=== PATIENT | female | born 1990 | race Asian ===

== ENCOUNTER 2021-04-12 00:16 | Emergency (ER) | payer OTHER ==
[~2021-04-12] VITALS: Ht 160 cm; Wt 59.0 kg
[2021-04-12 00:16] VITALS: BP 129/60
== END 2021-04-12 01:37 | disposition home or self-care (01) ==
LOC: ER 00:23
DX: Z20.822 Contact with and (suspected) exposure to COVID-19 (principal)
CPT/HCPCS: 99283; C9803; U0003

== ENCOUNTER 2021-04-26 01:57 | Emergency (ER) | payer OTHER ==
[~2021-04-26] VITALS: Ht 157.5 cm; Wt 59.0 kg
[2021-04-26 02:01] VITALS: BP 124/65
== END 2021-04-26 02:47 | disposition home or self-care (01) ==
LOC: ER 01:59
DX: Z20.822 Contact with and (suspected) exposure to COVID-19 (principal)
CPT/HCPCS: 99283; C9803; U0003

== ENCOUNTER 2021-04-30 02:06 | Emergency (ER) | payer OTHER ==
[~2021-04-30] VITALS: Ht 157.5 cm; Wt 59.0 kg
[2021-04-30 02:17] VITALS: BP 118/62
== END 2021-04-30 02:37 | disposition home or self-care (01) ==
LOC: ER 02:08
DX: Z20.822 Contact with and (suspected) exposure to COVID-19 (principal)
CPT/HCPCS: 99283; C9803; U0003

== ENCOUNTER 2021-05-10 02:30 | Emergency (ER) | payer OTHER ==
[~2021-05-10] VITALS: Ht 157.5 cm; Wt 59.0 kg
[2021-05-10 02:30] VITALS: BP 134/75
== END 2021-05-10 02:50 | disposition home or self-care (01) ==
LOC: ER 02:30
DX: Z20.822 Contact with and (suspected) exposure to COVID-19 (principal); R03.0 Elevated blood-pressure reading, without diagnosis of hypertension
CPT/HCPCS: 99283; C9803; U0003

== ENCOUNTER 2021-05-14 01:47 | Emergency (ER) | payer OTHER ==
[~2021-05-14] VITALS: Ht 157.5 cm; Wt 59.0 kg
[2021-05-14 01:49] VITALS: BP 124/67
== END 2021-05-14 02:14 | disposition home or self-care (01) ==
LOC: ER 01:48
DX: Z20.822 Contact with and (suspected) exposure to COVID-19 (principal)
CPT/HCPCS: 99283; C9803; U0003